=== PATIENT | male | born 1965 | race Hispanic/Latino ===

== ENCOUNTER 2017-10-17 07:43 | Day surgery (SDC) | payer OTHER ==
[2017-10-12 07:39] VITALS: BMI 32.1
[2017-10-17] MEDS ORDERED: Propofol 10 mg/ml Inj (20 ML) ONE (09:17)
[2017-10-17] MEDS ORDERED: Midazolam 2 MG/2 ML VIAL ONE (09:18)
[2017-10-17] MEDS ORDERED: Sodium Chloride 0.9% 1,000 ML IV SCH (10:30)
[2017-10-17 10:41] VITALS: PULSE 60; RESP 16
[2017-10-17 12:02] VITALS: BP 125/73; TEMP 98.1; O2SAT 98
== END 2017-10-17 11:40 | disposition home or self-care (01) ==
LOC: ENDO 07:43
PROVIDERS: ATTEND Internal Medicine
DX: K31.7 Polyp of stomach and duodenum (principal); K29.70 Gastritis, unspecified, without bleeding; K21.9 Gastro-esophageal reflux disease without esophagitis
CPT/HCPCS: 43239; 88305; 88312; 88342; J2250; J2704; J3010; J7040 ×2